=== PATIENT | female | born 1960 | race Caucasian/White ===

== ENCOUNTER 2016-07-08 10:34 | Day surgery (SDC) | payer BC, MEDICARE ==
[~2016-07-08] VITALS: Ht 154.9 cm; Wt 73.5 kg
[~2016-07-08 10:34] MED LIST: LEXA10TA PO
[2016-07-08] MEDS ORDERED: LISI-519 PO (10:43)
[2016-07-08] MEDS ORDERED: AMLO5TAB2 PO (10:43)
[2016-07-08 10:59] VITALS: BP 153/94; PULSE 87; RESP 18; TEMP 98.3; O2SAT 100
[2016-07-08] MEDS ORDERED: NS 1000P @30 MLS/HR (KVO) IV SCH (11:00)
[2016-07-08 11:14] LABS: AUTOMATED NEUTROPHIL # 3.8 TH/MM3 (1.8-7.7); BASOPHIL % 0.3 % (0.0-2.0); EOSINOPHIL % 0.5 % (0.0-4.0); HEMATOCRIT 42.1 % (35.0-46.0); HEMO FLAGS DIFF FINAL; LYMPH % 27.7 % (9.0-44.0); LYMPHOCYTE # 1.6 TH/MM3 (1.0-4.8); MEAN CORPUSCULAR HEMOGLOBIN 28.7 PG (27.0-34.0); MEAN CORPUSCULAR HGB CONC 34.2 % (32.0-36.0); MONO % 6.2 % (0.0-8.0); NEUT % 65.3 % (16.0-70.0); PLATELET COUNT 259 TH/MM3 (150-450); RED BLOOD COUNT 5.01 MIL/MM3 (4.00-5.30); RED CELL DISTRIBUTION WIDTH 13.8 % (11.6-17.2); WHITE BLOOD COUNT 5.9 TH/MM3 (4.0-11.0)
[2016-07-08 11:27] LABS: APTT (PATIENT) 26.2 SEC (24.3-30.1); PROTHROMBIN TIME - PATIENT 10.5 SEC (9.8-11.6)
[2016-07-08 11:30] LABS: POTASSIUM 3.8 MEQ/L (3.5-5.1)
[2016-07-08] MEDS ORDERED: HEPARIN-NS/PF INJ 500 ML ONE (12:23)
[2016-07-08] MEDS ORDERED: MIDAZOLAM HCL 2 MG/2 ML VIAL ONE ×2 (12:25→13:16)
[2016-07-08] MEDS ORDERED: IODIXANOL 320 MG/ML 100 ML VIAL (for Cath Lab) OTHER ONE (13:30)
[2016-07-08] MEDS ORDERED: ONDANSETRON HCL 4 MG/2 ML VIAL ONE (16:14)
[2016-07-08] MEDS ORDERED: ATROPINE SULFATE 1 MG/10 ML SYRINGE ONE (16:23)
[2016-07-08] MEDS ORDERED: ONDANSETRON HCL 4 MG/2 ML VIAL IV PUSH ONE (17:30)
[2016-07-08 18:00] VITALS: BP 109/68; PULSE 76; RESP 14; O2SAT 99
[2016-07-08 20:01] VITALS: BP 109/72; PULSE 73; RESP 18; TEMP 97.8; O2SAT 98
[2016-07-08] MEDS: LISINOPRIL 5 MG TAB PO SCH (20:11)
[2016-07-08 23:01] VITALS: BP 105/62; PULSE 63; RESP 17; TEMP 98.8; O2SAT 98
[2016-07-09 03:01] VITALS: BP 99/61; PULSE 70; RESP 22; TEMP 98; O2SAT 98
[2016-07-09 07:15] VITALS: BP 116/68; PULSE 69; TEMP 98.9; O2SAT 99
--- NOTE | 2016-07-09 08:56 | PD.CARD.PN ---
Subjective Subjective Remarks Patient has transient hypotension yesterday after sheath was pulled. BP trending up . The patient denies CP, SOB, right groin pain or lightheadedness. Objective Medications Current Medications Medications (Trade) Dose Ordered Sig/Qasim Route Start Time Stop Time Status Last Admin (NS 1000 ml Inj) 1,000 ml @ 30 mls/hr Q24H IV 07/08/16 11:00 (Prinivil) 5 mg BID PO 07/08/16 21:00 (Norvasc) 5 mg DAILY PO 07/09/16 09:00 Vital Signs / I&O Vital Signs Date Time Temp Pulse Resp B/P Pulse Ox O2 Delivery O2 Flow Rate FiO2 07/09/16 03:01 98.0 70 22 99/61 98 07/08/16 23:01 98.8 63 17 105/62 98 07/08/16 20:01 97.8 73 18 109/72 98 07/08/16 18:00 76 14 109/68 99 07/08/16 13:40 99 Room Air 07/08/16 10:59 98.3 87 18 153/94 100 I/O 07/08/16 07/08/16 07/08/16 07/09/16 07/09/16 07/09/16 07:00 15:00 23:00 07:00 15:00 23:00 Intake Total 240 ml Output Total 1550 ml Balance -1310 ml Intake Oral 240 ml Output Urine Total 1550 ml # Voids 3 # Bowel Movements 0 Physical Exam GENERAL: Patient up in the chair, no distress SKIN: Warm and dry. HEAD: Normocephalic. EYES: No scleral icterus. No injection or drainage. NECK: Supple, trachea midline. No JVD or lymphadenopathy. CARDIOVASCULAR: Regular rate and rhythm without murmurs, gallops, or rubs. RESPIRATORY: Breath sounds equal bilaterally. No accessory muscle use. GASTROINTESTINAL: Abdomen soft, non-tender, nondistended. MUSCULOSKELETAL: No cyanosis, or edema. BACK: Nontender without obvious deformity. Laboratory Laboratory Tests Test 07/08/16 10:52 White Blood Count 5.9 TH/MM3 Red Blood Count 5.01 MIL/MM3 Hemoglobin 14.4 GM/DL Hematocrit 42.1 % Mean Corpuscular Volume 84.0 FL Mean Corpuscular Hemoglobin 28.7 PG Mean Corpuscular Hemoglobin 34.2 % Concent Red Cell Distribution Width 13.8 % Platelet Count 259 TH/MM3 Mean Platelet Volume 8.9 FL Neutrophils (%) (Auto) 65.3 % Lymphocytes (%) (Auto) 27.7 % Monocytes (%) (Auto) 6.2 % Eosinophils (%) (Auto) 0.5 % Basophils (%) (Auto) 0.3 % Neutrophils # (Auto) 3.8 TH/MM3 Lymphocytes # (Auto) 1.6 TH/MM3 Monocytes # (Auto) 0.4 TH/MM3 Eosinophils # (Auto) 0.0 TH/MM3 Basophils # (Auto) 0.0 TH/MM3 CBC Comment DIFF FINAL Differential Comment Prothrombin Time 10.5 SEC Prothromb Time International 1.0 RATIO Ratio Activated Partial 26.2 SEC Thromboplast Time Sodium Level 140 MEQ/L Potassium Level 3.8 MEQ/L Chloride Level 105 MEQ/L Carbon Dioxide Level 29.0 MEQ/L Anion Gap 6 MEQ/L Blood Urea Nitrogen 16 MG/DL Creatinine 0.76 MG/DL Estimat Glomerular Filtration 78 ML/MIN Rate Random Glucose 107 MG/DL Calcium Level 9.3 MG/DL Assessment and Plan Assessment and Plan ASSESSMENT Abnormal cardiac stress test, s/p cardiac cath. No evidence of occlusive ASHD. Hypertension- transient hypotension after cardiac cath Vitamin D deficiency PLAN: Ok to discharge. Start ASA 81 and Lipitor 10 mg Hold home amlodipine. Resume amlodipine if home SBP > 150 mmHg or DBP > 90 mmHg Continue home lisinopril Follow up in the office 07/23/2016 or sooner with acute changes Assessment and plan discussed with Anita River Jul 09, 2016 08:56
[2016-07-09] MEDS ORDERED: ASPIRIN 81 MG CHEW TAB PO SCH (09:00)
[2016-07-09] MEDS: LISINOPRIL 5 MG TAB PO SCH (09:00)
[2016-07-09] MEDS ORDERED: amLODIPine BESYLATE 5 MG TAB PO SCH (09:00)
[2016-07-09] MEDS ORDERED: ATORVASTATIN 10 MG TAB PO SCH (09:00)
[2016-07-09] MEDS ORDERED: LIPI10TA PO (09:05)
[2016-07-09] MEDS ORDERED: ASPI325T PO (09:05)
--- NOTE | 2016-07-09 16:05 | EKG ---
Date Performed: 07/08/2016 Time Performed: 16:16:32 PTAGE: 55 years EKG: Sinus rhythm Anterior T wave changes are nonspecific Compared to prior tracing no significant change Borderline E CG PREVIOUS TRACING : 07/08/2016 11.04 DOCTOR: Don Herrera Interpretating Date/Time 07/09/2016 16:00:46
--- NOTE | 2016-07-09 16:05 | EKG ---
Date Performed: 07/08/2016 Time Performed: 11:04:44 PTAGE: 55 years EKG: Sinus rhythm Compared to prior tracing no significant change Normal ECG PREVIOUS TRACING : 08/08/2009 18.19 DOCTOR: Don Herrera Interpretating Date/Time 07/09/2016 16:01:01
--- NOTE | 2016-07-11 16:35 | MA ---
cc: DON HERRERA M.D., CAROL M. DO DATE: 07/08/2016. PROCEDURE PERFORMED: Cardiac catheterization. INDICATIONS FOR THE CARDIAC CATHETERIZATION: 1. Recurrent chest pain. 2. Indeterminate nuclear stress test. CONSENT: Full informed consent was obtained prior to the procedure. The risks of , bleeding, myocardial infarction, perforation, aspiration, foreseen and unforeseen complications were reviewed. The patient fully appeared to understand the risks. DESCRIPTION OF THE PROCEDURE IN DETAIL: The patient was prepped and draped in the usual sterile fashion. The right femoral artery was entered using a micropuncture technique. We had the 4-[place] system. Left and right coronary catheters were used to intubate the left femoral artery. A pigtail catheter to the left ventricle. Multiple procedures were carried out. At the end of the catheterization, all catheters were removed. The sheath was left in place to be pulled in the holding area. FINDINGS: 1. HEMODYNAMICS: The aortic pressure was 87/57 with a mean of 70. The left ventricular pressure was 96. The left ventricular end diastolic pressure was 9. There was no evidence of significant gradient on pullback. The left ventricular outflow tract. 2. LEFT VENTRICULOGRAM: The overall left ventricular ejection fraction was estimated at 60%. There was no mitral regurgitation or mural thrombus. 3. CORONARIES: The left main was free of significant disease. The left anterior descending artery was a large vessel and free of significant disease. The first diagonal branch was large and bifurcated and was free of significant disease. The circumflex vessel was a large vessel with a large first obtuse marginal branch. The second obtuse marginal branch was small. The first obtuse marginal branch was tortuous. The left anterior descending was tortuous as was the diagonal branch and free of significant disease. The right coronary artery was a large vessel with a large posterior descending artery and small posterolateral branches. The ostium of the right had a 30% to 40% stenosis. CONCLUSIONS: 30% to 40% ostial stenosis, probably not the cause of the patient's chest pain. PLAN: Medical management. Don Herrera MD, FRCP,[facility] /1:32 PM /4:19 PM OLGA
== END 2016-07-09 11:19 | disposition home or self-care (01) ==
LOC: HDOC 10:34 → HDIC 10:35 → HCPC 17:57 → HDOC 07-09 11:19
PROVIDERS: ATTEND Internal Medicine Cardiovascular Disease
DX: R94.39 Abnormal result of other cardiovascular function study (principal); R07.9 Chest pain, unspecified; I10 Essential (primary) hypertension; E55.9 Vitamin D deficiency, unspecified; I34.0 Nonrheumatic mitral (valve) insufficiency
CPT/HCPCS: 80048; 85025; 85610; 85730; 93005; 93458; C1893; J0461; J1644; J2250; J2405; J3010; Q9967